=== PATIENT | female | born 1990 | race Caucasian/White ===

== ENCOUNTER 2020-09-03 10:12 | Outpatient (CLI) | payer OTHER ==
[2020-09-03 21:24] LABS: SARS-CoV-2 MS2 Positive; SARS-CoV-2 N Gene Negative; SARS-CoV-2 S Gene Negative; SARS-CoV-2 by NAA Not Detected (NotDetected); SARS-CoV-2 orf1ab Negative
== END 2020-09-03 10:13 | disposition home or self-care (01) ==
LOC: LABBT 10:12
PROVIDERS: ATTEND Obstetrics & Gynecology
DX: Z01.812 Encounter for preprocedural laboratory examination (principal); Z20.822 Contact with and (suspected) exposure to COVID-19
CPT/HCPCS: 87635; U0003

== ENCOUNTER 2020-09-06 07:30 | Inpatient (IN) | payer OTHER ==
[2020-09-10] MEDS ORDERED: hydrALAZINE 20 MG/ML VIAL SLOW IVP PRN ×2 (05:22→13:33)
[2020-09-10] MEDS ORDERED: Bicitra 30 ML UDCUP PO PRN (05:22)
[2020-09-10] MEDS ORDERED: CEFAZOLIN 2 GM in Premix Bag 1 BAG IVPB SCH (05:22)
[2020-09-10] MEDS ORDERED: Famotidine/PF 20 mg/2ml Vial SLOW IVP PRN (05:22)
[2020-09-10] MEDS ORDERED: Ondansetron PF 4 MG/2 ML Vial IVP PRN ×4 (05:22→13:33)
[2020-09-10] MEDS ORDERED: Promethazine HCl 25 MG/ML VIAL IM PRN ×3 (05:22→13:33)
[2020-09-10] MEDS: Lactated Ringer's 1,000 ML IV SCH (05:30)
[2020-09-10 05:48] LABS: Hemoglobin 13.1 g/dL (12.0-16.0); Mean Corpuscular HGB CONC 32.4 g/dL (32.0-36.0); Mean Corpuscular Hemoglobin 30.2 pg (27.0-31.0); Mean Corpuscular Volume 93.1 fL (78.0-98.0); Mean Platelet Volume 8.8 fL (7.4-10.4); Platelet Count 255 thou/uL (130-400); RBC Distribution Width 12.4 % (11.5-14.5); Red Blood Cell (RBC) Count 4.34 mill/uL (4.20-5.40); White Blood Cell (WBC) Count 12.7 thou/uL (4.8-10.8)
[2020-09-10 05:57] VITALS: BMI 32.2
[2020-09-10 06:25] LABS: Syphilis Antibody Nonreactive (Nonreactive); Syphilis Antibody Index 0.04 S/CO (<1.00 Non-Reactive)
[2020-09-10 06:26] LABS: HBSAg Index 0.17 S/CO (0-0.99); Hep B Surf Ag Non-Reactive S/CO (NonReactive)
[2020-09-10] MEDS ORDERED: Scopolamine 1.5 mg/72 hour Patch ONE (06:40)
[2020-09-10] MEDS ORDERED: Famotidine/PF 20 mg/2ml Vial ONE (06:40)
[2020-09-10] MEDS ORDERED: Ondansetron PF 4 MG/2 ML Vial ONE (06:41)
[2020-09-10] MEDS ORDERED: FLU VACC QS2020-21(6MOS UP)/PF 60 MCG/0.5 ML SYRINGE IM ONE (07:00)
[2020-09-10] MEDS ORDERED: Morphine PF 10 MG/10 ML VIAL ONE (07:11)
[2020-09-10] MEDS ORDERED: Oxytocin 10 UNITS/ML VIAL ONE (07:12)
[2020-09-10] MEDS ORDERED: PHENYLEPHRINE-NS 100 MCG/ML 10 ML SYRINGE ONE (08:01)
[2020-09-10] MEDS ORDERED: Promethazine HCl 25 MG/ML VIAL ONE (08:01)
[2020-09-10] MEDS ORDERED: Midazolam HCl 2 mg/2 ml Vial ONE ×3 (08:08→08:21)
[2020-09-10] MEDS ORDERED: diphenhydrAMINE 50 MG/ML VIAL ONE (08:15)
[2020-09-10] MEDS: Ketorolac Tromethamine 30 MG/ML VIAL IVP PRN (10:10)
[2020-09-10] MEDS ORDERED: Ketorolac Tromethamine 30 MG/ML VIAL ONE ×2 (10:57→17:21)
[2020-09-10] MEDS ORDERED: Promethazine HCl 25 MG SUPP PR PRN (11:13)
[2020-09-10] MEDS ORDERED: Naloxone HCl 0.4 mg/ml Vial IV PRN ×2 (11:13→11:15)
[2020-09-10] MEDS ORDERED: Naloxone HCl 0.4 mg/ml Vial IVP PRN ×4 (11:13→11:15)
[2020-09-10] MEDS ORDERED: diphenhydrAMINE 50 MG/ML VIAL IVP PRN ×2 (11:13→11:15)
[2020-09-10] MEDS ORDERED: Ondansetron HCl/PF 4 MG/2 ML Vial IVP PRN ×2 (11:13→11:15)
[2020-09-10] MEDS ORDERED: L&D-Morphine 4 MG/ML VIAL SLOW IVP PRN ×2 (11:13→11:15)
[2020-09-10] MEDS ORDERED: HYDROmorphone 2 MG/ML VIAL SLOW IVP PRN ×2 (11:13→11:15)
[2020-09-10] MEDS ORDERED: Ketorolac Tromethamine 30 MG/ML VIAL IVP PRN (11:13)
[2020-09-10] MEDS ORDERED: Communication Order-Pharmacy FS SCH ×2 (11:15)
[2020-09-10] MEDS ORDERED: Ketorolac Tromethamine 30 MG/ML VIAL IVP SCH ×2 (11:15)
[2020-09-10] MEDS ORDERED: Lanolin Ointment 7 GM TUBE TOP PRN (13:33)
[2020-09-10] MEDS ORDERED: diphenhydrAMINE 25 MG CAP PO PRN (13:33)
[2020-09-10] MEDS ORDERED: Simethicone Chewable 80 MG TAB PO PRN (13:33)
[2020-09-10] MEDS ORDERED: NS w/ Oxytocin 30 units 500 ML IV SCH (13:33)
[2020-09-10] MEDS ORDERED: Acetaminophen 325 MG TAB PO PRN (13:33)
[2020-09-10] MEDS ORDERED: Adacel (T-DAP) 0.5 ML SYRINGE IM ONE (13:33)
[2020-09-10] MEDS: Ferrous Sulfate 325 MG TAB PO SCH (21:22)
[2020-09-10] MEDS: Docusate Calcium (SURFAK) 240 MG CAP PO SCH (21:22)
[2020-09-10] MEDS ORDERED: HYDROcodone/Acetaminophen 5/325 mg Tablet PO PRN (23:15)
[2020-09-11] MEDS: Ketorolac Tromethamine 30 MG/ML VIAL IVP PRN ×2 (00:25→06:44)
[2020-09-11 07:32] LABS: Hemoglobin 12.3 g/dL (12.0-16.0); Mean Corpuscular HGB CONC 34.7 g/dL (32.0-36.0); Mean Corpuscular Hemoglobin 32.7 pg (27.0-31.0); Mean Corpuscular Volume 94.1 fL (78.0-98.0); Mean Platelet Volume 8.6 fL (7.4-10.4); Platelet Count 196 thou/uL (130-400); RBC Distribution Width 12.3 % (11.5-14.5); Red Blood Cell (RBC) Count 3.76 mill/uL (4.20-5.40); White Blood Cell (WBC) Count 20.4 thou/uL (4.8-10.8)
--- NOTE | 2020-09-11 09:09 | PDOC.PP ---
Post Progress Note Post Day #: 1 Subjective: Feeling well today. No further seizure-like activity nor dystonia overnight. Currently . Pain well controlled w/ PO meds. PO intake tolerated: yes Flatus: yes Ambulation: no Weight Weight 85.275 kg - Physical Examination General: NAD Cardiovascular: RRR Respiratory: non-labored breathing Abdominal: lochia (downtrending), appropriately TTP Fundus firm & at: level of umbilicus Skin: CS incision dry & intact, no rash Neurological: no gross focal deficits Psychiatric: A&Ox3 Result Diagrams: 09/11/20 07:15 Additional Labs: Post Labs Hep Bs Antigen Non-Reactive S/CO (NonReactive) 09/10/20 05:37 Blood Type O NEGATIVE 09/10/20 06:31 - Assessment/Plan 30 yo F G2 now P1001 delivered at 40.0 wga POD#1 s/p PLTCS - postop hemoglobin stable, total PP QBL 682 mL today - tolerated clears, going to eat breakfast today - [place] out this AM, monitor for urination - encourage ambulation today - G1 so consult placed Dystonic reaction to anesthesia Hx of astrocytoma removal, 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 - Avoid phenothiazine antiemetics (eg compazine) RH-negative - give rhogam GDM - d/c metformin, 6 wk PP GTT Dispo: monitor today. Stable for transfer to PP floor.
[2020-09-11] MEDS: Docusate Calcium (SURFAK) 240 MG CAP PO SCH ×2 (09:54→20:27)
[2020-09-11] MEDS: Prenatal Vitamin 1 TAB PO SCH (09:54)
[2020-09-11] MEDS: Ferrous Sulfate 325 MG TAB PO SCH ×2 (10:30→15:47)
--- NOTE | 2020-09-11 10:38 | CON ---
DATE OF CONSULTATION: 09/11/2020 CONSULTING PHYSICIAN: [facility]. IMPRESSION: Dystonic reaction, likely secondary to medication. She has a past history of this happening in the past based on her mother's reports. PLAN: Avoid phenothiazine type antiemetics. HISTORY OF PRESENT ILLNESS: Ms. Jorge is a 30-year-old white female, who underwent yesterday for the delivery of her baby. During the delivery, she started to have some uncontrolled movements. She was unconscious at first and recalls that she could not resist the urge for this movement of her extremities. She subsequently delivered and then moved to the floor. She has not had any further attacks similar to this. Reportedly, this has happened in the past, but she did not really recall the details. The only other symptom she reports prior to the onset of this was itching in her palm. PAST HISTORY: Otherwise negative. ALLERGIES: NONE REPORTED. SOCIAL HISTORY: No tobacco, alcohol, or drug use. FAMILY HISTORY: Unremarkable. REVIEW OF SYSTEMS: Ten-system review of systems is otherwise negative. PHYSICAL EXAMINATION: GENERAL: She is a well-nourished young woman, lying in bed, in no distress. VITAL SIGNS: Have been stable. She is afebrile. HEENT: Pupils are equal and reactive. Conjunctivae are clear. Oropharynx clear. NECK: Supple. EXTREMITIES: No cyanosis or edema. SKIN: Clear. NEUROLOGIC: She is alert and appropriate. Has nothing focal on exam. No abnormal movements were seen. SUMMARY: This is a young woman with reported event suggestive of a dystonic reaction, most likely secondary to medication. I do not see any acute neurologic issues otherwise. Job ID: [id number]
[2020-09-11] MEDS: HYDROcodone/Acetaminophen 5/325 mg Tablet PO PRN ×3 (12:04→20:27)
[2020-09-11] MEDS: Ibuprofen 800 MG TAB PO SCH ×2 (13:52→20:28)
[2020-09-11] MEDS: Lactated Ringer's 1,000 ML IV SCH (19:23)
[2020-09-12] MEDS: HYDROcodone/Acetaminophen 5/325 mg Tablet PO PRN ×2 (01:27→13:48)
[2020-09-12] MEDS: Ibuprofen 800 MG TAB PO SCH ×3 (04:47→20:30)
--- NOTE | 2020-09-12 06:28 | PDOC.PP ---
Post Progress Note Post Day #: 2 Subjective: Tolerating PO, feeling lightheaded when walking, has not drank much water. PO intake tolerated: yes Flatus: yes Ambulation: yes Vital Signs (12 hours) Temp Pulse Resp BP Pulse Ox 09/12/20 04:48 97.9 F 94 16 120/63 09/11/20 23:50 97.9 F 79 16 106/61 09/11/20 19:37 98.1 F 75 16 105/55 L 97 Weight Weight 85.275 kg - Physical Examination General: NAD Cardiovascular: RRR Respiratory: non-labored breathing Abdominal: lochia (downtrending), no distention, appropriately TTP Fundus firm & at: umbilicus Skin: CS incision dry & intact, no rash Result Diagrams: 09/11/20 07:15 Additional Labs: Post Labs Hep Bs Antigen Non-Reactive S/CO (NonReactive) 09/10/20 05:37 Blood Type O NEGATIVE 09/10/20 06:31 - Assessment/Plan 30 yo G2 now P1011 delivered by PLTCS POD #2 - meeting milestones - pain controlled with [place] - encouraged to drink more water/stay hydrated especially if . Dispo: monitor today, likely d/c tomorrow.
[2020-09-12] MEDS: Ferrous Sulfate 325 MG TAB PO SCH ×2 (09:10→15:38)
[2020-09-12] MEDS: Prenatal Vitamin 1 TAB PO SCH (09:40)
[2020-09-12] MEDS: Docusate Calcium (SURFAK) 240 MG CAP PO SCH ×2 (09:40→20:31)
[2020-09-13] MEDS: HYDROcodone/Acetaminophen 5/325 mg Tablet PO PRN (03:42)
[2020-09-13] MEDS: Ibuprofen 800 MG TAB PO SCH (05:22)
--- NOTE | 2020-09-13 05:22 | OP ---
DATE OF PROCEDURE: 09/10/2020 RESIDENT: Belle Leonard MD ATTENDING: Jossy Johnston MD PROCEDURE PERFORMED: Primary low-transverse section with vacuum- assisted delivery. PREOPERATIVE DIAGNOSES: 1. Term intrauterine . 2. Labor contraindicated due to history of astrocytoma removed in 1998. 3. Gestational diabetes mellitus. 4. Rh negative. POSTOPERATIVE DIAGNOSES: 1. Term intrauterine , delivered. 2. Labor contraindicated due to history of astrocytoma removed in 1998. 3. Gestational diabetes mellitus. 4. Rh negative. 5. Dystonic reaction to anesthesia. ANESTHESIA: Spinal. QUANTITATIVE BLOOD LOSS: Pending. FINDINGS: Placenta intact with 3-vessel cord noted, discarded. A viable female with a weight of 2993 g, and Apgars of 7 and 9 at one and five minutes of life respectively. Normal uterus, fallopian tubes, and ovaries. SPECIMENS: Cord blood collected for blood type. DRAINS: [place] to gravity draining clear urine. INDICATIONS FOR PROCEDURE: A 30-year-old G2, P-0-0-1-0, at 40.0 WGA, presents to Labor and Delivery for primary low-transverse section. Labor is contraindicated for her due to her history of brain tumor removal. DESCRIPTION OF PROCEDURE: After risks, benefits, and alternatives were explained to the patient, she gave her informed consent. Preoperative antibiotics included 2 g of cefazolin IV. The patient was taken to the operating room, where spinal anesthesia was initiated. A time-out was performed per protocol. The patient was placed in the supine position with a left tilt. She was prepped and draped in the usual sterile fashion. A Pfannenstiel incision was created with a scalpel and carried down to the level of the fascia, which was sharply nicked on both sides of the midline. Subcutaneous bleeders were cauterized for hemostasis. Curved Lerner scissors were used to extend the fascial cut bilaterally. The superior and inferior edges of the fascia were elevated with Mackenzie clamps, and the rectus muscles were bluntly and sharply dissected free. The rectus muscles were bluntly dissected and manually retracted. The peritoneum was entered bluntly, and cautery was used to extend the peritoneum inferiorly. The bladder was transilluminated, and this area was avoided. The peritoneum was then manually retracted. The uterus appeared to be free of adhesions. A bladder blade was placed. A bladder flap was created. A low-transverse uterine incision was created with a scalpel. The uterus was entered in the midline sharply, which caused amniotomy. Clear fluid was seen. The hysterotomy was extended manually. The was noted to be in the vertex presentation. Delivery was difficult, so vacuum was applied to the 's head. There was one pop-off. The infant was delivered with vacuum assistance and fundal pressure. No nuchal cord was noted. The viable female was stimulated. Cord was clamped and cut, and the was taken to the warmer to the team. The placenta was manually removed. The uterus was exteriorized, and the endometrium was curetted with a dry lap x2. The hysterotomy was closed with 1 chromic in a running locking fashion. Three interrupted imbricating sutures were sewn over the hysterotomy. Hemostasis was noted. The bladder flap was repaired with 2-0 Monocryl in a running nonlocking fashion. Hemostasis was again noted and the uterus was firm. The posterior aspect of the uterus was inspected and irrigated. Hemostasis was noted. Seprafilm was placed over the hysterotomy in the anterior portion of the uterus. The uterus was returned to the abdomen and again noted to be hemostatic. The peritoneum was closed using 0 Vicryl in a running nonlocking fashion. The rectus muscles were reapproximated with interrupted sutures using 0 Vicryl and 1 chromic. Bleeders on the rectus muscles were cauterized. The fascia was then closed with two ligatures of 2-0 Vicryl in a running nonlocking fashion with the exception of locking the first stitch at each corner. The subcutaneous space was irrigated with sterile saline. The subcutaneous bleeders were again cauterized. The subcutaneous space was closed with interrupted sutures using 2-0 plain gut. The skin was then closed using 4-0 Monocryl in a running subcuticular fashion. Dermabond was then placed over the incision. The patient tolerated the procedure well. All counts were correct. During anesthesia after delivery of the baby, the patient did start to experience a dystonic reaction with normal temperature noted. It was most likely that this patient was having a dystonic reaction to the dopamine. The anesthesiologist less likely suspected neuroleptic malignant syndrome versus serotonin syndrome. The patient went to recovery for routine care. She is to stay on the Labor and Delivery unit for her initial recovery. Neurology was consulted. Job ID: [id number] MTDD
--- NOTE | 2020-09-13 06:39 | PDOC.PP ---
Post Progress Note Post Day #: 3 Subjective: Feeling well. Ready to go home. PO intake tolerated: yes Flatus: yes Ambulation: yes Vital Signs (12 hours) Temp Pulse Resp BP Pulse Ox 09/12/20 20:32 97 09/12/20 20:27 97.5 F L 94 16 120/74 97 Weight Weight 85.275 kg - Physical Examination General: NAD Respiratory: non-labored breathing Abdominal: no distention, appropriately TTP Skin: CS incision dry & intact, no rash Neurological: no gross focal deficits Psychiatric: A&Ox3 Result Diagrams: 09/11/20 07:15 Additional Labs: Post Labs Hep Bs Antigen Non-Reactive S/CO (NonReactive) 09/10/20 05:37 Blood Type O NEGATIVE 09/10/20 06:31 - Assessment/Plan 30 yo G2 now P1011 delivered by PLTCS POD #3 - stable for discharge. Pt's mother coming to pick her up and be around for support during these coming weeks.
[2020-09-13] MEDS: Ferrous Sulfate 325 MG TAB PO SCH (07:55)
[2020-09-13] MEDS: Docusate Calcium (SURFAK) 240 MG CAP PO SCH (08:02)
[2020-09-13] MEDS: Prenatal Vitamin 1 TAB PO SCH (08:02)
[2020-09-13 08:39] VITALS: BP 125/77; TEMP 97.7
== END 2020-09-13 12:20 | disposition home or self-care (01) | DRG 787 ==
LOC: L&D 09-10 04:57 → 3SW 09-11 11:36
PROVIDERS: ADMIT Obstetrics & Gynecology; ATTEND Obstetrics & Gynecology
PROC: 10D00Z1 Extraction of Products of Conception, Low, Open Approach (ICD-10-PCS; principal; 2020-09-10)
PROC: 3E0234Z Introduction of Serum, Toxoid and Vaccine into Muscle, Percutaneous Approach (ICD-10-PCS; 2020-09-11)
DX: O24.429 Gestational diabetes mellitus in childbirth, unspecified control (principal); G24.09 Other drug induced dystonia; Z3A.39 39 weeks gestation of pregnancy; Z37.0 Single live birth; Z20.822 Contact with and (suspected) exposure to COVID-19; O99.344 Other mental disorders complicating childbirth; F32.9 Major depressive disorder, single episode, unspecified; O26.893 Other specified pregnancy related conditions, third trimester; Z67.41 Type O blood, Rh negative; O74.8 Other complications of anesthesia during labor and delivery; Z79.899 Other long term (current) drug therapy; Z85.841 Personal history of malignant neoplasm of brain
CPT/HCPCS: 36415; 51702; 85027; 85460; 85461; 86780; 86850; 86900; 86901; 87340; 90384; 96372; J0690; J1200; J1885; J2250; J2270; J2405; J2550; S0028

== ENCOUNTER → 2020-09-06 | Day surgery (SDC) | payer OTHER ==
[2020-09-06 13:14] LABS: SARS-CoV-2 MS2 Positive; SARS-CoV-2 N Gene Negative; SARS-CoV-2 S Gene Negative; SARS-CoV-2 by NAA Not Detected (NotDetected); SARS-CoV-2 orf1ab Negative
== END ==
LOC: L&D/OP 08:20
PROVIDERS: ATTEND Obstetrics & Gynecology
DX: Z01.812 Encounter for preprocedural laboratory examination (principal); Z20.822 Contact with and (suspected) exposure to COVID-19
CPT/HCPCS: 87635; U0003